=== PATIENT | male | born 1990 | race Caucasian/White ===

== ENCOUNTER 2020-12-14 08:25 | Emergency (ER) | payer BC ==
[~2020-12-14] VITALS: Ht 182.9 cm; Wt 240.0 kg
[~2020-12-14 08:25] MED LIST: NO HOME MEDS
[2020-12-14] MEDS ORDERED: RHINOCORT (09:37)
[2020-12-14] MEDS ORDERED: ZPAK PO (09:37)
[2020-12-14 09:48] VITALS: BP 138/78
== END 2020-12-14 09:49 | disposition home or self-care (01) | DRG 203 ==
LOC: ED 08:25
DX: J40 Bronchitis, not specified as acute or chronic (principal); J32.9 Chronic sinusitis, unspecified; F17.200 Nicotine dependence, unspecified, uncomplicated; Z20.822 Contact with and (suspected) exposure to COVID-19

== ENCOUNTER 2024-03-06 01:30 | Emergency (ER) | payer BC ==
[~2024-03-06] VITALS: Ht 182.9 cm; Wt 127.0 kg
[~2024-03-06 01:30] MED LIST changes: +RHINOCORT; +ZPAK PO
[2024-03-06] MEDS ORDERED: FLUORESCEIN SODIUM 1 MG EA OU ONE (02:05)
[2024-03-06] MEDS ORDERED: TETRACAINE HCL 0.5 %/4 ML SOL OU ONE (02:05)
[2024-03-06] MEDS ORDERED: GENTAMICIN0.3 % OU (02:22)
[2024-03-06] MEDS ORDERED: GENTAMICIN SULFATE (OPHTH) 5 ML BTL OU ONE (02:25)
[2024-03-06 06:00] VITALS: BP 134/90
== END 2024-03-06 06:00 | disposition home or self-care (01) | DRG 125 ==
LOC: ED 01:30
DX: H16.133 Photokeratitis, bilateral (principal); W89.8XXA Exposure to other man-made visible and ultraviolet light, initial encounter; Y93.89 Activity, other specified